=== PATIENT | male | born 1945 | race African-American/Black ===

== ENCOUNTER 2019-10-15 07:46 | Day surgery (SDC) | payer BC ==
[~2019-10-15] VITALS: Ht 182.9 cm; Wt 112.5 kg
[~2019-10-15 07:46] MED LIST: ATOR40TA52 PO; LEVO112T4 PO; LISI-275 PO; METF-489 PO
[2019-10-15] MEDS ORDERED: ceFAZolin 1GM/50ML 100 ML IV ONE (09:56)
[2019-10-15] MEDS ORDERED: LIDOCAINE W/ EPINEPHRINE 1 % INJ 30ML ONE (12:11)
[2019-10-15] MEDS ORDERED: BUPIVACAINE 0.25% INJ 50ML VIAL ONE (12:11)
[2019-10-15] MEDS ORDERED: ONDANSETRON HCL 4 MG/2 ML VIAL ONE (12:18)
[2019-10-15] MEDS ORDERED: GLYCOPYRROLATE 0.2 MG/ML 1ML VIAL ONE (12:18)
[2019-10-15] MEDS ORDERED: MIDAZOLAM HCL 1MG/1ML-2 ML VIAL ONE (12:18)
[2019-10-15] MEDS ORDERED: PROPOFOL 10 MG/ML 20 ML IV ONE (12:18)
[2019-10-15] MEDS ORDERED: LIDOCAINE 2% (LOCAL ANESTH.) PF 5ml SDV ONE (12:18)
[2019-10-15] MEDS ORDERED: NEOMYCIN-BACITRACIN-POLYM 15GM TOP OINT TOP ONE (13:13)
[2019-10-15] MEDS ORDERED: HYDROmorphone HCL 2 MG/ML VL IV PRN (13:30)
[2019-10-15] MEDS ORDERED: ONDANSETRON HCL 4 MG/2 ML VIAL IV PRN (13:30)
[2019-10-15 14:00] VITALS: BP 151/91
== END 2019-10-15 14:29 | disposition home or self-care (01) ==
LOC: SUR 07:46
PROVIDERS: ATTEND Surgery
DX: L72.0 Epidermal cyst (principal); I10 Essential (primary) hypertension; L85.8 Other specified epidermal thickening; E11.9 Type 2 diabetes mellitus without complications; E07.9 Disorder of thyroid, unspecified; E66.9 Obesity, unspecified; Z68.33 Body mass index [BMI] 33.0-33.9, adult; Z87.891 Personal history of nicotine dependence; Z20.828 Contact with and (suspected) exposure to other viral communicable diseases
CPT/HCPCS: 11403; 11423; 12032; 12041; 82962; 88304; J0690; J2001; J2250; J2405; J2704; J3490; U0003; A4565